=== PATIENT | female | born 1935 | race Caucasian/White ===

== ENCOUNTER → 2016-05-03 | Outpatient (CLI) | payer MEDICARE, BC ==
--- NOTE | 2016-05-03 14:06 | RADRPT ---
PROCEDURE: US venous left lower extremity CLINICAL INDICATION: Left lower extremity pain and swelling. TECHNIQUE: Multiple longitudinal and transverse images of the left lower extremity veins were obta ined with gamble scale and color Doppler imaging. 2D grayscale imaging with compression, color Dopple r flow, and augmentation was performed. The calf veins were interrogated as well. COMPARISON: None available. FINDINGS: The left common femoral, superficial femoral, and popliteal veins are normally compressible througho ut. There is normal color Doppler flow within the vessels and all the vessels are augmentable. The c care home veins are visualized and are equally unremarkable. IMPRESSION: 1. No evidence of a deep vein thrombosis within the left lower extremity. RPTAT: HLBP .Jayy Mirza MD, MD Date Time Electronically viewed and signed by .Jayy Mirza MD, MD on 05/03/2016 14:05 .P/
== END | disposition home or self-care (01) ==
LOC: VAS 11:53
PROVIDERS: ATTEND Orthopaedic Surgery
DX: S92.302G Fracture of unspecified metatarsal bone(s), left foot, subsequent encounter for fracture with delayed healing (principal); X58.XXXD Exposure to other specified factors, subsequent encounter; M79.605 Pain in left leg
CPT/HCPCS: 82652; 93971